=== PATIENT | male | born 1985 | race Caucasian/White ===

== ENCOUNTER 2016-11-04 | Emergency (ER) | payer BC ==
[~2016-11-04] VITALS: Ht 172.7 cm; Wt 56.7 kg
[~2016-11-04] MED LIST: ASACOL HD800 MG PO; EXCEDRIN MIGRA1 EAC3 PO; ZOFRAN4 MG PO
[2016-11-04 00:32] LABS: HEMATOCRIT 51.5 % (38.0-50.0); MCH 32.6 PG (29.0-34.0); MCHC 34.8 G/DL (30.0-36.0); MCV 93.8 FL (86-99); MEAN PLAT.VOLUME 11.9 uM^3 (9.0-12.4); PLATELET COUNT 142 K/uL (156-360); RBC DIS.WIDTH-CV 12.7 % (11.8-14.6); RED BLOOD COUNT 5.49 M/uL (4.00-5.50); WHITE BLOOD COUNT 10.7 K/uL (4.1-10.2)
[2016-11-04 00:35] LABS: ADD MIUA? YES; BILIRUBIN NEGATIVE; BLOOD NEGATIVE; COLOR AMBER ((YELLOW)); GLUCOSE (STRIP) NEGATIVE; KETONES 20; LEUKOCYTES NEGATIVE; NITRITE NEGATIVE; PROTEIN (STRIP) 100; SPECIFIC GRAVITY 1.033 (1.000-1.030); UROBILINOGEN 0.2 MG/DL (0.2-1.0)
[2016-11-04 00:44] LABS: CHLORIDE 105 mEq/L (99-109); POTASSIUM 4.5 mEq/L (3.7-5.4); SODIUM 143 mEq/L (136-147)
[2016-11-04 00:46] LABS: GLUCOSE 106 mg/dL (70-99)
[2016-11-04 00:47] LABS: ANION GAP 13 MEQ/L (2-14)
[2016-11-04 00:49] LABS: ALKALINE PHOSPHATASE 70 IU/L (3-129)
[2016-11-04 00:50] LABS: GFR ESTIMATE (CALCULATED) > 59 mL/min/
[2016-11-04 00:51] LABS: UREA NITROGEN (BUN) 16 mg/dL (9-23)
[2016-11-04 00:51] LABS: BACTERIA RARE /HPF; CALCIUM OXALATE CRYSTALS 4+ /HPF; EPITHELIAL CELLS RARE /HPF; HYALINE CASTS 0-5 /LPF; MUCUS 2+ /LPF; RED BLOOD CELLS 0-5 /HPF (0-5); UCUL ADDED? NO; WHITE BLOOD CELLS 0-5 /HPF (0-5)
[2016-11-04 00:53] LABS: LIPASE 32 U/L (1.0-51.0)
[2016-11-04 01:56] LABS: AMPHETAMINE NEGATIVE (500 ng/mL); BARBITURATES NEGATIVE (200 ng/mL); BENZODIAZEPINES NEGATIVE (150 ng/mL); COCAINE NEGATIVE (150 ng/mL); INTERNAL CONTROLS VALID? YES; METHADONE NEGATIVE (200 ng/mL); METHAMPHETAMINE NEGATIVE (500 ng/mL); OPIATES (MORPHINE) NEGATIVE (100 ng/mL); OXYCODONE NEGATIVE (100 ng/mL); PHENCYCLIDINE NEGATIVE (25 ng/mL); PROPOXYPHENE NEGATIVE (300 ng/mL); THC CANNABINOIDS NEGATIVE (50 ng/mL); TRICYCLIC ANTIDEPRESSANTS NEGATIVE (300 ng/mL)
[2016-11-04 01:57] LABS: CREATINE KINASE 118 IU/L (1-294)
[2016-11-04] MEDS ORDERED: BENTYL20 MG PO (03:59)
[2016-11-04] MEDS ORDERED: PROMETHAZINE HC50 M1 PO (03:59)
[2016-11-04 04:23] VITALS: BP 135/94
== END 2016-11-04 04:24 | disposition home or self-care (01) ==
LOC: EME
DX: K52.9 Noninfective gastroenteritis and colitis, unspecified (principal); K50.90 Crohn's disease, unspecified, without complications; J45.909 Unspecified asthma, uncomplicated; Z72.0 Tobacco use
CPT/HCPCS: 74177; 80053; 81003; 82550; 83690; 85027; 99281; 99285; J2405; J3010; J7030; S0028